=== PATIENT | male | born 1950 | race Caucasian/White ===

== ENCOUNTER 2021-06-27 10:13 | Emergency (ER) | payer MEDICARE ==
[~2021-06-27 10:13] MED LIST: CARBIDOPA-LEVO1 EAC6 PO; COLACE100 MG PO; CYMBALTA60 MG PO; Duragesic 50 M50 MCG TD; FLOMAX0.4 MG PO; LITHIUM CARBON300 M1 PO; MAG-OXIDE200 MG PO; MELATONIN10 M3 PO; NUPLAZID34 MG PO; OMEPRAZOLE20 M3 PO; PREGABALIN150 MG PO; SYNTHROID25 MCG PO; TYLENOL325 M1 PO; VITAMIN B-121000 MC2 PO; VITAMIN D31250 MC1 PO
[2021-06-27] MEDS ORDERED: Duragesic 75 M75 MCG TD (13:05)
[2021-06-27] MEDS ORDERED: OXYCODONE-ACET1 EAC2 PO (13:05)
== END 2021-06-27 13:14 ==
LOC: ED 10:13
DX: C90.00 Multiple myeloma not having achieved remission (principal); Z88.0 Allergy status to penicillin; Z79.899 Other long term (current) drug therapy

== ENCOUNTER 2021-07-16 15:19 | Inpatient (IN) | payer MEDICARE ==
[~2021-07-16] VITALS: Ht 170.2 cm; Wt 91.6 kg
[~2021-07-16 15:19] MED LIST changes: +Duragesic 75 M75 MCG TD; +OXYCODONE-ACET1 EAC2 PO
[2021-07-16 15:23] VITALS: BP 126/78
[2021-07-16 16:48] LABS: BASO % 0.5 % (0.0-1.0); EOS # 0.2 10*3/uL (0.0-0.4); EOS % 5.2 % (1.0-4.0); HEMATOCRIT 25.7 % (42.0-52.0); LYMPH % 24.9 % (27.0-41.0); MEAN CELL VOLUME 85.7 fl (80.0-94.0); MEAN CORPUSCULAR HGB CONC 32.7 g/dl (33.0-37.0); MEAN PLATELET VOLUME 12.5 fl (9.6-12.3); MONO # 0.3 10*3/uL (0.1-1.0); NEUT # 2.4 10*3/uL (2.3-7.9); NEUT % 60.4 % (47.0-73.0); PLATELET COUNT AUTOMATED 74 10*3/uL (130-400); RED CELL DISTRI WIDTH 16.4 % (0-14.5)
[2021-07-16] MEDS ORDERED: COLACE100 MG PO (17:02)
[2021-07-16] MEDS ORDERED: CARBIDOPA-LEVO1 EAC6 PO (17:02)
[2021-07-16] MEDS ORDERED: VITAMIN B-121000 MC2 PO (17:03)
[2021-07-16] MEDS ORDERED: CYMBALTA60 MG PO (17:04)
[2021-07-16] MEDS ORDERED: CYMBALTA30 MG PO (17:04)
[2021-07-16] MEDS ORDERED: Duragesic 75 M75 MCG TD (17:05)
[2021-07-16] MEDS ORDERED: LITHIUM CARBON300 MG PO (17:05)
[2021-07-16] MEDS ORDERED: MAGNESIUM400 MG PO (17:06)
[2021-07-16 17:07] LABS: ALBUMIN 2.8 gm/dl (3.1-4.5); ALKALINE PHOSPHATASE 146 U/L (45-117); BUN 54 mg/dl (7-24); CHLORIDE 99 mmol/L (98-107); POTASSIUM 3.5 mmol/L (3.5-5.1); SGOT/AST 5 IU/L (3-35); SODIUM 135 mmol/L (136-145); TOTAL PROTEIN 7.8 gm/dL (6.4-8.2)
[2021-07-16] MEDS ORDERED: MELATONIN10 M2 PO (17:07)
[2021-07-16] MEDS ORDERED: NUPLAZID34 MG PO (17:08)
[2021-07-16] MEDS ORDERED: DAILY VALUE1 EACH PO (17:08)
[2021-07-16] MEDS ORDERED: PERCOCET 10-321 EACH PO (17:09)
[2021-07-16] MEDS ORDERED: OMEPRAZOLE20 M2 PO (17:09)
[2021-07-16] MEDS ORDERED: SYNTHROID25 MCG PO (17:10)
[2021-07-16] MEDS ORDERED: LYRICA150 M1 PO (17:10)
[2021-07-16 17:12] LABS: SGPT/ALT < 6 U/L (12-78)
[2021-07-16] MEDS ORDERED: TAMSULOSIN HCL0.4 MG PO (17:12)
[2021-07-16] MEDS ORDERED: VITAMIN D31250 MC1 PO (17:13)
[2021-07-16] MEDS ORDERED: ZINC30 M1 PO (17:14)
[2021-07-16] MEDS ORDERED: ZONISAMIDE100 MG PO (17:15)
[2021-07-16] MEDS ORDERED: ZYRTEC10 M2 PO (17:15)
[2021-07-16 17:18] LABS: CREATININE 6.08 mg/dL (0.70-1.30)
[2021-07-16 17:55] VITALS: BP 122/67
[2021-07-16 19:20] VITALS: BP 122/67
[2021-07-16 22:03] VITALS: BP 146/59
[2021-07-17] VITALS: BP 153/73
[2021-07-17 06:08] LABS: ALBUMIN 2.7 gm/dl (3.1-4.5); ALKALINE PHOSPHATASE 139 U/L (45-117); BUN 55 mg/dl (7-24); CHLORIDE 100 mmol/L (98-107); CREATININE 5.88 mg/dL (0.70-1.30); POTASSIUM 3.5 mmol/L (3.5-5.1); SGOT/AST 4 IU/L (3-35); SODIUM 136 mmol/L (136-145); TOTAL PROTEIN 7.6 gm/dL (6.4-8.2)
[2021-07-17 06:11] LABS: BASO % 0.8 % (0.0-1.0); EOS # 0.2 10*3/uL (0.0-0.4); EOS % 4.8 % (1.0-4.0); HEMATOCRIT 24.7 % (42.0-52.0); LYMPH # 1.1 10*3/uL (1.3-4.4); LYMPH % 28.2 % (27.0-41.0); MEAN CELL VOLUME 86.1 fl (80.0-94.0); MEAN CORPUSCULAR HGB 27.9 pg (27.0-31.0); MEAN CORPUSCULAR HGB CONC 32.4 g/dl (33.0-37.0); MEAN PLATELET VOLUME 13.8 fl (9.6-12.3); MONO # 0.3 10*3/uL (0.1-1.0); MONO % 7.1 % (3.0-9.0); NEUT # 2.3 10*3/uL (2.3-7.9); NEUT % 57.3 % (47.0-73.0); PLATELET COUNT AUTOMATED 75 10*3/uL (130-400); RED BLOOD COUNT 2.87 10*6/uL (4.50-5.90); RED CELL DISTRI WIDTH 16.6 % (0-14.5); WHITE BLOOD COUNT 3.9 10*3/uL (4.8-10.8)
[2021-07-17 06:26] LABS: SGPT/ALT < 6 U/L (12-78)
[2021-07-17 08:38] LABS: ACT PARTIAL THROMBO TIME 24.7 SECONDS (20.0-32.1)
[2021-07-17 09:18] VITALS: BP 150/76; BP 152/72
[2021-07-17 12:00] VITALS: BP 110/90
[2021-07-17 20:00] VITALS: BP 115/66
[2021-07-18] VITALS: BP 133/59
[2021-07-18 08:00] VITALS: BP 140/68
[2021-07-18 08:32] LABS: BASO % 0.7 % (0.0-1.0); EOS # 0.3 10*3/uL (0.0-0.4); HEMATOCRIT 26.7 % (42.0-52.0); LYMPH # 1.6 10*3/uL (1.3-4.4); LYMPH % 35.5 % (27.0-41.0); MEAN CELL VOLUME 86.4 fl (80.0-94.0); MEAN CORPUSCULAR HGB 27.8 pg (27.0-31.0); MEAN CORPUSCULAR HGB CONC 32.2 g/dl (33.0-37.0); MEAN PLATELET VOLUME 12.1 fl (9.6-12.3); MONO # 0.4 10*3/uL (0.1-1.0); MONO % 7.7 % (3.0-9.0); NEUT # 2.2 10*3/uL (2.3-7.9); NEUT % 47.7 % (47.0-73.0); PLATELET COUNT AUTOMATED 75 10*3/uL (130-400); RED BLOOD COUNT 3.09 10*6/uL (4.50-5.90); RED CELL DISTRI WIDTH 16.6 % (0-14.5); WHITE BLOOD COUNT 4.5 10*3/uL (4.8-10.8)
[2021-07-18 08:53] LABS: CREATININE 5.56 mg/dL (0.70-1.30); POTASSIUM 3.6 mmol/L (3.5-5.1)
== END 2021-07-18 12:12 | disposition hospice, home (50) | DRG 682 ==
LOC: ED 15:19 → 4E 16:38 → EDHOLD 16:38 → 4E 23:38
PROVIDERS: Emergency Medicine; Hospitalist; Registered Nurse; ADMIT Internal Medicine; ATTEND Internal Medicine
DX: N17.0 Acute kidney failure with tubular necrosis (principal); G93.41 Metabolic encephalopathy; E43 Unspecified severe protein-calorie malnutrition; C90.00 Multiple myeloma not having achieved remission; D61.818 Other pancytopenia; E87.1 Hypo-osmolality and hyponatremia; E83.52 Hypercalcemia; G20 Parkinson's disease; Z66 Do not resuscitate; Z51.5 Encounter for palliative care; Z88.0 Allergy status to penicillin; Z79.899 Other long term (current) drug therapy; Z68.31 Body mass index [BMI] 31.0-31.9, adult